=== PATIENT | female | born 1970 | race Caucasian/White ===

== ENCOUNTER 2016-12-25 15:56 | Emergency (ER) | payer MEDICAID ==
[~2016-12-25] VITALS: Ht 160 cm; Wt 63.0 kg
[2016-12-25] MEDS ORDERED: SODIUM CHLORIDE 0.9% 1,000 ML IV ONE (16:13)
[2016-12-25] MEDS ORDERED: ONDANSETRON HCL 4MG/2ML VIAL IV STA (16:13)
[2016-12-25] MEDS ORDERED: MORPHINE SULFATE 4 MG/ML CPJ (NOT FOR IM USE) IV ONE (16:15)
[2016-12-25 16:46] LABS: BASOPHILS % 0.8 % (0.0-2.0); EOSINOPHILS % 0.4 % (0.0-5.0); HEMATOCRIT. 34.5 % (36.0-48.0); LYMPHOCYTES % 36.2 % (20.0-50.0); MEAN CORPUSCULAR HEMOGLOBIN 23.4 pg (28.0-32.0); MEAN CORPUSCULAR VOLUME 73.1 fL (81.0-99.0); MEAN PLATELET VOLUME 8.7 fl (7.4-10.4); MONOCYTES % 6.2 % (2.0-8.0); NEUTROPHILS % 56.4 % (40.0-76.0); PLATELET 233 x1000/uL (130-400); RED BLOOD CELL COUNT 4.72 mill/uL (4.2-5.4)
[2016-12-25 16:48] LABS: CHLORIDE 103 mEq/L (98-107)
[2016-12-25 16:56] LABS: CARBON DIOXIDE 27 mEq/L (21-32)
[2016-12-25] MEDS ORDERED: AMLODIPINE 5MG TABLET PO ONE (18:15)
[2016-12-25 18:36] VITALS: BP 183/83
== END 2016-12-25 18:43 | disposition home or self-care (01) ==
LOC: ER 16:09
DX: R51 Headache (principal); I10 Essential (primary) hypertension; Z98.51 Tubal ligation status
CPT/HCPCS: 36415; 70450; 71010; 80053; 85025; 93005; 96361; 96374; 96375; 99285; J2270; J2405; J7030; Z7610

== ENCOUNTER 2017-05-13 04:52 | Emergency (ER) | payer SELFPAY ==
[~2017-05-13] VITALS: Ht 162.6 cm; Wt 50.0 kg
[2017-05-13] MEDS ORDERED: LORAZEPAM 1MG TABLET PO ONE (07:45)
[2017-05-13] MEDS ORDERED: ACETAMINOPHEN 500MG TABLET PO ONE (07:45)
[2017-05-13] MEDS ORDERED: BENAZEPRIL 20MG TABLET PO ONE (08:15)
[2017-05-13 08:37] VITALS: BP 165/84
== END 2017-05-13 09:00 | disposition home or self-care (01) ==
LOC: ER 04:52
DX: F41.9 Anxiety disorder, unspecified (principal); I10 Essential (primary) hypertension; Z98.51 Tubal ligation status
CPT/HCPCS: 71010; 99283

== ENCOUNTER 2017-08-08 10:08 | Emergency (ER) | payer SELFPAY ==
[~2017-08-08] VITALS: Ht 160 cm; Wt 64.4 kg
[2017-08-08] MEDS ORDERED: PROCHLORPERAZINE 10MG/2ML VIAL IV ONE (12:45)
[2017-08-08] MEDS ORDERED: DIPHENHYDRAMINE 50MG/ML VIAL IV ONE (12:45)
[2017-08-08 12:52] LABS: BASOPHILS % 0.6 % (0.0-2.0); EOSINOPHILS % 0.3 % (0.0-5.0); HEMATOCRIT. 36.9 % (36.0-48.0); HEMOGLOBIN. 12.2 g/dL (12.0-16.0); LYMPHOCYTES % 19.2 % (20.0-50.0); MEAN CORPUSCULAR HEMOGLOBIN 26.2 pg (28.0-32.0); MEAN CORPUSCULAR VOLUME 79.5 fL (81.0-99.0); MEAN PLATELET VOLUME 8.5 fl (7.4-10.4); MONOCYTES % 8.6 % (2.0-8.0); NEUTROPHILS % 71.3 % (40.0-76.0); PLATELET 207 x1000/uL (130-400); RED BLOOD CELL COUNT 4.65 mill/uL (4.2-5.4); RED CELL DISTRIBUTION WIDTH 15.1 % (11.6-14.6)
[2017-08-08 12:54] LABS: CHLORIDE 105 mEq/L (98-107)
[2017-08-08 13:20] LABS: HCG SCREEN NEGATIVE
[2017-08-08 15:50] VITALS: BP 187/93
== END 2017-08-08 15:59 | disposition home or self-care (01) ==
LOC: ER 12:00
DX: R51 Headache (principal); I10 Essential (primary) hypertension; Z98.51 Tubal ligation status
CPT/HCPCS: 36415; 70450; 80053; 84703; 85025; 93005; 99285; J0780; J1200; 96374

== ENCOUNTER 2017-10-02 17:15 | Emergency (ER) | payer SELFPAY ==
[~2017-10-02] VITALS: Ht 160 cm; Wt 64.0 kg
[2017-10-02 18:39] LABS: CLARITY URINE CLEAR (CLEAR); COLOR URINE YELLOW (YELLOW); KETONES URINE NEGATIVE (NEGATIVE); LEUKOCYTE ESTERASE URINE NEGATIVE (NEGATIVE); NITRITE URINE NEGATIVE (NEGATIVE); OCCULT BLOOD URINE 1+ (NEGATIVE); PH URINE 8.5 (4.5-8.0); PROTEIN URINE NEGATIVE (NEGATIVE); SPECIFIC GRAVITY URINE 1.018 (1.005-1.030)
[2017-10-02 18:57] LABS: BASOPHILS % 0.7 % (0.0-2.0); EOSINOPHILS % 0.4 % (0.0-5.0); HEMATOCRIT. 34.5 % (36.0-48.0); HEMOGLOBIN. 11.3 g/dL (12.0-16.0); LYMPHOCYTES % 38.7 % (20.0-50.0); MEAN CORPUSCULAR HEMOGLOBIN 26.3 pg (28.0-32.0); MEAN CORPUSCULAR VOLUME 80.6 fL (81.0-99.0); MEAN PLATELET VOLUME 8.6 fl (7.4-10.4); MONOCYTES % 9.1 % (2.0-8.0); NEUTROPHILS % 51.1 % (40.0-76.0); PLATELET 215 x1000/uL (130-400); RED BLOOD CELL COUNT 4.28 mill/uL (4.2-5.4); RED CELL DISTRIBUTION WIDTH 14.8 % (11.6-14.6)
[2017-10-02 18:58] LABS: CHLORIDE 103 mEq/L (98-107)
[2017-10-02 19:02] LABS: HCG SCREEN NEGATIVE
[2017-10-02] MEDS ORDERED: KETOROLAC 60MG/2ML VIAL IM ONE (20:30)
[2017-10-02 23:25] VITALS: BP 164/92
== END 2017-10-03 00:11 | disposition home or self-care (01) ==
LOC: ER 17:15
DX: D25.9 Leiomyoma of uterus, unspecified (principal); N83.201 Unspecified ovarian cyst, right side; D64.9 Anemia, unspecified; I10 Essential (primary) hypertension; Z98.51 Tubal ligation status
CPT/HCPCS: 36415; 76830; 76856; 80048; 81003; 84703; 85025; 96372; 99285; J1885; Z7610

== ENCOUNTER 2017-10-06 18:53 | Emergency (ER) | payer SELFPAY ==
[~2017-10-06] VITALS: Ht 167.6 cm; Wt 65.0 kg
[2017-10-06] MEDS ORDERED: ACETAMINOPHEN 325MG TABLET PO ONE (19:15)
[2017-10-06] MEDS ORDERED: AMLODIPINE 5MG TABLET PO ONE (19:30)
[2017-10-06 20:11] LABS: BASOPHILS % 0.8 % (0.0-2.0); EOSINOPHILS % 0.3 % (0.0-5.0); HEMATOCRIT. 33.3 % (36.0-48.0); HEMOGLOBIN. 11.1 g/dL (12.0-16.0); LYMPHOCYTES % 38.3 % (20.0-50.0); MEAN CORPUSCULAR HEMOGLOBIN 26.6 pg (28.0-32.0); MEAN CORPUSCULAR VOLUME 79.6 fL (81.0-99.0); MEAN PLATELET VOLUME 8.7 fl (7.4-10.4); MONOCYTES % 7.7 % (2.0-8.0); NEUTROPHILS % 52.9 % (40.0-76.0); PLATELET 211 x1000/uL (130-400); RED BLOOD CELL COUNT 4.18 mill/uL (4.2-5.4); RED CELL DISTRIBUTION WIDTH 14.5 % (11.6-14.6)
[2017-10-06 20:16] LABS: CHLORIDE 105 mEq/L (98-107)
[2017-10-06] MEDS ORDERED: ACETAMINOPHEN WITH CODEINE 300/30MG TABLET PO ONE (21:15)
[2017-10-06] MEDS ORDERED: KETOROLAC 60MG/2ML VIAL IM ONE (22:15)
[2017-10-06] MEDS ORDERED: CLONIDINE 0.1MG TABLET PO ONE (22:15)
[2017-10-06 23:47] VITALS: BP 146/88
== END 2017-10-06 23:51 | disposition home or self-care (01) ==
LOC: ER 18:53
DX: I16.0 Hypertensive urgency (principal); I10 Essential (primary) hypertension; D25.9 Leiomyoma of uterus, unspecified; Z98.51 Tubal ligation status
CPT/HCPCS: 36415; 71045; 80053; 81025; 85025; 85610; 93005; 96372; 99285; J1885; Z7610

== ENCOUNTER 2017-11-18 16:32 | Emergency (ER) | payer SELFPAY ==
[~2017-11-18] VITALS: Ht 160 cm; Wt 62.0 kg
[2017-11-18 16:43] VITALS: BP 152/94
== END 2017-11-18 21:00 | disposition left against medical advice (07) ==
LOC: ER 20:54
DX: R51 Headache (principal); R06.02 Shortness of breath; R42 Dizziness and giddiness; H53.8 Other visual disturbances; I10 Essential (primary) hypertension; Z98.51 Tubal ligation status
CPT/HCPCS: 99281

== ENCOUNTER 2017-11-26 08:53 | Inpatient (IN) | payer SELFPAY ==
[~2017-11-26] VITALS: Ht 160 cm; Wt 62.6 kg
[2017-11-26] MEDS ORDERED: AMLO2.5T45 MT (09:18)
[2017-11-26] MEDS ORDERED: METO25TA6 MT (09:18)
[2017-11-26] MEDS ORDERED: MORPHINE SULFATE 4 MG/ML CPJ (NOT FOR IM USE) IV STA (09:39)
[2017-11-26] MEDS ORDERED: ONDANSETRON HCL 4MG/2ML VIAL IV ONE (09:45)
[2017-11-26] MEDS ORDERED: ACETAMINOPHEN 325MG TABLET PO ONE (10:00)
[2017-11-26 10:05] LABS: BASOPHILS % 0.5 % (0.0-2.0); EOSINOPHILS % 0.4 % (0.0-5.0); HEMATOCRIT. 32.8 % (36.0-48.0); HEMOGLOBIN. 11.1 g/dL (12.0-16.0); LYMPHOCYTES % 25.8 % (20.0-50.0); MEAN CORPUSCULAR HEMOGLOBIN 27.3 pg (28.0-32.0); MEAN PLATELET VOLUME 7.3 fl (7.4-10.4); MONOCYTES % 5.7 % (2.0-8.0); NEUTROPHILS % 67.6 % (40.0-76.0); PLATELET 225 x1000/uL (130-400); RED BLOOD CELL COUNT 4.05 mill/uL (4.2-5.4); RED CELL DISTRIBUTION WIDTH 17.3 % (11.6-14.6)
[2017-11-26 10:12] LABS: PROTHROMBIN TIME 10.5 sec (9.4-11.6)
[2017-11-26 10:25] LABS: CHLORIDE 107 mEq/L (98-107)
[2017-11-26] MEDS ORDERED: ACETAMINOPHEN 325MG TABLET PO PRN (12:00)
[2017-11-26] MEDS ORDERED: ACETAMINOPHEN 650MG SUPP PR PRN (12:00)
[2017-11-26] MEDS ORDERED: MAGNESIUM/ALUMINUM HYDROXIDE/SIMETHICONE 30ML UDC PO PRN (12:00)
[2017-11-26] MEDS ORDERED: NA PHOS,M-B/NA PHOS,DI-BA ENEMA 118ML PR PRN (12:00)
[2017-11-26] MEDS ORDERED: DIPHENHYDRAMINE 50MG/ML VIAL IV PRN (12:00)
[2017-11-26] MEDS ORDERED: GUAIFENESIN 200MG/10ML SUGAR FREE UDC PO PRN (12:00)
[2017-11-26] MEDS ORDERED: ONDANSETRON HCL 4MG/2ML VIAL IV PRN (12:00)
[2017-11-26] MEDS ORDERED: HYDROCODONE/ACETAMINOPHEN 5/325MG TABLET PO PRN (12:00)
[2017-11-26] MEDS ORDERED: DOCUSATE SODIUM 100MG CAPSULE PO PRN (12:00)
[2017-11-26 13:09] LABS: CHLORIDE 105 mEq/L (98-107)
[2017-11-26 14:00] VITALS: BP 151/60
[2017-11-26] MEDS ORDERED: CLONIDINE 0.2MG TABLET PO PRN (15:15)
[2017-11-26] MEDS ORDERED: POTASSIUM CHLORIDE 20MEQ TABLET SR PO SCH (15:15)
[2017-11-26] MEDS ORDERED: POTASSIUM CHLORIDE 20MEQ/PACKET PO SCH (15:30)
[2017-11-26 16:00] VITALS: BP 165/86
[2017-11-26] MEDS: AMLODIPINE 2.5MG TABLET PO SCH (17:35)
[2017-11-26] MEDS: HYDROCODONE/ACETAMINOPHEN 10/325MG TABLET PO PRN ×2 (17:35→22:48)
[2017-11-26 19:07] LABS: CLARITY URINE CLOUDY (CLEAR); COLOR URINE YELLOW (YELLOW); KETONES URINE NEGATIVE (NEGATIVE); LEUKOCYTE ESTERASE URINE NEGATIVE (NEGATIVE); NITRITE URINE NEGATIVE (NEGATIVE); OCCULT BLOOD URINE NEGATIVE (NEGATIVE); PH URINE >=9.0 (4.5-8.0); PROTEIN URINE NEGATIVE (NEGATIVE); SPECIFIC GRAVITY URINE 1.016 (1.005-1.030); UROBILINOGEN URINE 0.2 E.U./dL (0.2-1.0)
[2017-11-26 19:11] LABS: UCG SCREEN NEGATIVE
[2017-11-26 19:22] LABS: CREATINE KINASE 70 IU/L (26-192)
[2017-11-26 19:23] LABS: CREATINE KINASE MB FRACTION 1.9 ng/mL (0.5-3.6)
[2017-11-26 19:28] LABS: *BARBITURATES SCREEN URINE NEGATIVE (NEGATIVE)
[2017-11-26 19:29] LABS: *BENZODIAZEPINES SCREEN URINE NEGATIVE (NEGATIVE); *COCAINE SCREEN URINE NEGATIVE (NEGATIVE); CANNABINOID URINE SCREEN NEGATIVE (NEGATIVE); METHADONE URINE SCREEN NEGATIVE (NEGATIVE); PHENCYCLIDINE URINE SCREEN NEGATIVE (NEGATIVE)
[2017-11-26 19:35] LABS: *AMPHETAMINES SCREEN URINE NEGATIVE (NEGATIVE); OPIATES URINE SCREEN PRESUMTIVE POSITIVE (NEGATIVE)
[2017-11-26 20:00] VITALS: BP 156/74
[2017-11-26] MEDS: IPRATROPIUM/ALBUTEROL 0.5-3(2.5)MG/3ML NEB INH SCH (22:20)
[2017-11-26] MEDS: CLONIDINE 0.2MG TABLET PO PRN (23:16)
[2017-11-26] MEDS: LORAZEPAM 0.5MG TABLET PO PRN (23:16)
[2017-11-26 23:51] LABS: CREATINE KINASE 73 IU/L (26-192)
[2017-11-26 23:52] LABS: CREATINE KINASE MB FRACTION 1.7 ng/mL (0.5-3.6)
[2017-11-27] VITALS: BP 159/92
[2017-11-27] MEDS: IPRATROPIUM/ALBUTEROL 0.5-3(2.5)MG/3ML NEB INH SCH ×3 (03:00→20:00)
[2017-11-27 04:00] VITALS: BP 173/85
[2017-11-27] MEDS: CLONIDINE 0.2MG TABLET PO PRN (06:11)
[2017-11-27 06:51] LABS: BASOPHILS % 0.4 % (0.0-2.0); EOSINOPHILS % 0.7 % (0.0-5.0); HEMATOCRIT. 35.4 % (36.0-48.0); HEMOGLOBIN. 11.7 g/dL (12.0-16.0); LYMPHOCYTES % 45.3 % (20.0-50.0); MEAN CORPUSCULAR HEMOGLOBIN 27.4 pg (28.0-32.0); MEAN CORPUSCULAR VOLUME 82.6 fL (81.0-99.0); MEAN PLATELET VOLUME 7.8 fl (7.4-10.4); NEUTROPHILS % 44.6 % (40.0-76.0); PLATELET 214 x1000/uL (130-400); RED BLOOD CELL COUNT 4.28 mill/uL (4.2-5.4); RED CELL DISTRIBUTION WIDTH 17.4 % (11.6-14.6)
[2017-11-27 07:09] LABS: CHLORIDE 105 mEq/L (98-107)
[2017-11-27 07:34] LABS: LDL CHOLESTEROL 92 mg/dL (5-100)
[2017-11-27 07:37] LABS: CREATINE KINASE 54 IU/L (26-192); HDL CHOLESTEROL 76 mg/dL (40-59)
[2017-11-27 07:38] LABS: CREATINE KINASE MB FRACTION 1.6 ng/mL (0.5-3.6)
[2017-11-27 07:39] LABS: T4 FREE 1.03 ng/dL (0.76-1.46)
[2017-11-27 08:00] VITALS: BP 117/75
[2017-11-27 12:00] VITALS: BP 122/75
[2017-11-27] MEDS: HYDROCODONE/ACETAMINOPHEN 10/325MG TABLET PO PRN (13:55)
[2017-11-27] MEDS: LOSARTAN POTASSIUM 25 MG TABLET PO SCH ×3 (14:30→21:07)
[2017-11-27 16:00] VITALS: BP 141/69
[2017-11-27 20:00] VITALS: BP 127/73
[2017-11-27] MEDS: AMLODIPINE 2.5MG TABLET PO SCH (21:00)
[2017-11-27] MEDS: ACETAMINOPHEN 650MG/20.3ML UDC GT PRN ×2 (21:03→21:05)
[2017-11-28] VITALS: BP 176/86
[2017-11-28] MEDS: LOSARTAN POTASSIUM 25 MG TABLET PO SCH (00:19)
[2017-11-28] MEDS: AMLODIPINE 2.5MG TABLET PO SCH (00:21)
[2017-11-28 04:00] VITALS: BP 161/85
[2017-11-28] MEDS: LORAZEPAM 0.5MG TABLET PO PRN (04:25)
[2017-11-28] MEDS: CLONIDINE 0.2MG TABLET PO PRN (04:25)
[2017-11-28 07:13] LABS: BASOPHILS % 0.5 % (0.0-2.0); HEMOGLOBIN. 12.1 g/dL (12.0-16.0); LYMPHOCYTES % 30.3 % (20.0-50.0); MEAN CORPUSCULAR HEMOGLOBIN 27.6 pg (28.0-32.0); MEAN CORPUSCULAR VOLUME 82.4 fL (81.0-99.0); MONOCYTES % 7.9 % (2.0-8.0); NEUTROPHILS % 60.3 % (40.0-76.0); PLATELET 222 x1000/uL (130-400); RED BLOOD CELL COUNT 4.36 mill/uL (4.2-5.4); RED CELL DISTRIBUTION WIDTH 17.1 % (11.6-14.6)
[2017-11-28 08:00] VITALS: BP 123/75
[2017-11-28 08:01] LABS: CHLORIDE 104 mEq/L (98-107)
[2017-11-28] MEDS: IPRATROPIUM/ALBUTEROL 0.5-3(2.5)MG/3ML NEB INH SCH ×3 (08:16→12:55)
[2017-11-28] MEDS: HYDROCODONE/ACETAMINOPHEN 10/325MG TABLET PO PRN (11:14)
[2017-11-28 12:00] VITALS: BP 114/76
[2017-11-28 16:00] VITALS: BP 122/71
[2017-11-28] MEDS ORDERED: AMLO2.5T45 PO (16:46)
[2017-11-28] MEDS ORDERED: LOSA25TA3 PO (16:46)
[2017-11-28 17:15] VITALS: BP 122/71
== END 2017-11-28 18:00 | disposition home or self-care (01) | DRG 203 ==
LOC: ER 08:53 → 7WST 11:06 → EDBEDREQ 11:08 → ENRESERV 13:34
PROVIDERS: ADMIT Internal Medicine; ATTEND Internal Medicine
DX: R07.89 Other chest pain (principal); E46 Unspecified protein-calorie malnutrition; E07.81 Sick-euthyroid syndrome; E11.9 Type 2 diabetes mellitus without complications; E87.6 Hypokalemia; F17.200 Nicotine dependence, unspecified, uncomplicated; F41.9 Anxiety disorder, unspecified; I10 Essential (primary) hypertension; Z68.24 Body mass index [BMI] 24.0-24.9, adult; Z79.899 Other long term (current) drug therapy
CPT/HCPCS: 36415; 71045; 78452; 80048; 80053; 80061; 80305; 81003; 81025; 82550; 82553; 82962; 83690; 83735; 83880; 84439; 84443; 84481; 84484; 85025; 85379; 85610; 93005; 93017; 93306; 93970; 94640; 96374; 96375; 99285; A9500; J1200; J2270; J2405; J7620

== ENCOUNTER 2017-12-01 16:55 | Emergency (ER) | payer SELFPAY ==
[~2017-12-01] VITALS: Ht 160 cm; Wt 62.7 kg
[~2017-12-01 16:55] MED LIST: AMLO2.5T45 PO; LOSA25TA3 PO
[2017-12-01 19:42] VITALS: BP 144/57
== END 2017-12-01 22:41 | disposition home or self-care (01) ==
LOC: ER 20:25
DX: B34.9 Viral infection, unspecified (principal); I10 Essential (primary) hypertension
CPT/HCPCS: 82962; 93005; 99283; Z7610

== ENCOUNTER 2018-09-17 16:58 | Emergency (ER) | payer SELFPAY ==
[~2018-09-17] VITALS: Ht 160 cm; Wt 65.0 kg
[2018-09-17] MEDS ORDERED: METO-539 PO (17:05)
[2018-09-17] MEDS ORDERED: ONDANSETRON HCL 4MG/2ML INJ IV STA (18:30)
[2018-09-17] MEDS ORDERED: SODIUM CHLORIDE 0.9% 1,000 ML IV ONE (18:30)
[2018-09-17 19:14] LABS: CHLORIDE 104 mEq/L (98-107)
[2018-09-17 19:16] LABS: BASOPHILS % 0.8 % (0.0-2.0); EOSINOPHILS % 0.9 % (0.0-5.0); HEMATOCRIT. 39.3 % (36.0-48.0); HEMOGLOBIN. 13.2 g/dL (12.0-16.0); LYMPHOCYTES % 39.5 % (20.0-50.0); MEAN CORPUSCULAR VOLUME 86.3 fL (81.0-99.0); MEAN PLATELET VOLUME 9.1 fl (7.4-10.4); MONOCYTES % 7.9 % (2.0-8.0); NEUTROPHILS % 50.9 % (40.0-76.0); PLATELET 203 x1000/uL (130-400); RED BLOOD CELL COUNT 4.56 mill/uL (4.2-5.4); RED CELL DISTRIBUTION WIDTH 13.5 % (11.6-14.6)
[2018-09-17] MEDS ORDERED: ASPIRIN 81MG TABLET PO ONE (19:45)
[2018-09-17 22:40] VITALS: BP 162/84
== END 2018-09-17 22:45 | disposition home or self-care (01) ==
LOC: ER 16:58
DX: R07.89 Other chest pain (principal); I10 Essential (primary) hypertension; Z90.710 Acquired absence of both cervix and uterus
CPT/HCPCS: 36415; 71045; 80053; 81025; 83880; 84484; 85025; 93005; 96374; 99284; J2405; J7030

== ENCOUNTER 2018-11-28 15:37 | Emergency (ER) | payer SELFPAY ==
[~2018-11-28] VITALS: Ht 160 cm; Wt 68.0 kg
[~2018-11-28 15:37] MED LIST changes: +METO-539 PO
[2018-11-28 15:48] VITALS: BP 220/102
== END 2018-11-28 18:17 | disposition left against medical advice (07) ==
LOC: ER 15:37
DX: Z53.21 Procedure and treatment not carried out due to patient leaving prior to being seen by health care provider (principal)

== ENCOUNTER 2020-08-11 16:02 | Emergency (ER) | payer MEDICAID ==
[~2020-08-11] VITALS: Ht 160 cm; Wt 77.0 kg
[2020-08-11 16:43] LABS: BASOPHILS % 0.6 % (0.0-2.0); EOSINOPHILS % 0.4 % (0.0-5.0); HEMATOCRIT. 41.1 % (36.0-48.0); HEMOGLOBIN. 14.1 g/dL (12.0-16.0); LYMPHOCYTES % 31.6 % (20.0-50.0); MEAN CORPUSCULAR HEMOGLOBIN 31.3 pg (28.0-32.0); MEAN CORPUSCULAR VOLUME 90.9 fL (81.0-99.0); MEAN PLATELET VOLUME 8.1 fl (7.4-10.4); MONOCYTES % 7.3 % (2.0-8.0); NEUTROPHILS % 60.1 % (40.0-76.0); PLATELET 229 x1000/uL (130-400); RED BLOOD CELL COUNT 4.53 mill/uL (4.2-5.4); RED CELL DISTRIBUTION WIDTH 12.7 % (11.6-14.6)
[2020-08-11 16:49] LABS: CHLORIDE 107 mEq/L (98-107)
[2020-08-11] MEDS ORDERED: ACETAMINOPHEN 325MG TABLET PO ONE (18:30)
[2020-08-11] MEDS ORDERED: IBUPROFEN 400MG TABLET PO ONE (18:30)
[2020-08-11 18:32] VITALS: BP 169/85
== END 2020-08-11 19:47 | disposition home or self-care (01) ==
LOC: ER 16:02
DX: R42 Dizziness and giddiness (principal); R51.9 Headache, unspecified; I10 Essential (primary) hypertension; Z90.710 Acquired absence of both cervix and uterus
CPT/HCPCS: 36415; 71045; 80053; 83880; 84484; 85025; 93005; 99285

== ENCOUNTER 2023-05-24 20:54 | Emergency (ER) | payer SELFPAY ==
[~2023-05-24] VITALS: Ht 162.6 cm; Wt 72.4 kg
[~2023-05-24 20:54] MED LIST changes: +LOSA-412 PO; -LOSA25TA3 PO
[2023-05-24 22:22] VITALS: BP 148/93; PULSE 60; RESP 18; TEMP 98; O2SAT 99
[2023-05-25] MEDS ORDERED: LORAZEPAM 0.5MG TABLET PO ONE (00:45)
[2023-05-25] MEDS ORDERED: HYDR-3992 MT (01:03)
== END 2023-05-25 02:18 | disposition home or self-care (01) ==
LOC: ER 20:54
DX: K08.89 Other specified disorders of teeth and supporting structures (principal); F41.9 Anxiety disorder, unspecified; I10 Essential (primary) hypertension; Z98.890 Other specified postprocedural states
CPT/HCPCS: 99283

== ENCOUNTER 2023-08-09 14:05 | Emergency (ER) | payer SELFPAY ==
[~2023-08-09] VITALS: Ht 160 cm; Wt 73.0 kg
[~2023-08-09 14:05] MED LIST changes: +HYDR-3992 MT
[2023-08-09 14:16] VITALS: O2SAT 98
[2023-08-09] MEDS ORDERED: AMOX1TAB16 MT (16:13)
[2023-08-09] MEDS ORDERED: BACI3.5O24 RIGHTEYE (16:15)
[2023-08-09 17:10] VITALS: BP 164/94; PULSE 62; RESP 16; TEMP 98.2
== END 2023-08-09 17:15 | disposition home or self-care (01) ==
LOC: ER 14:39
DX: H00.011 Hordeolum externum right upper eyelid (principal); F41.9 Anxiety disorder, unspecified; I10 Essential (primary) hypertension; Z79.899 Other long term (current) drug therapy
CPT/HCPCS: 99281; 99283

== ENCOUNTER 2023-12-12 14:03 | Emergency (ER) | payer SELFPAY ==
[~2023-12-12] VITALS: Ht 160 cm; Wt 74.0 kg
[~2023-12-12 14:03] MED LIST changes: +AMOX1TAB16 MT; +BACI3.5O24 RIGHTEYE
[2023-12-12 14:08] VITALS: O2SAT 99
[2023-12-12] MEDS: KETOROLAC 30MG/ML VIAL IM ONE (15:28)
[2023-12-12 15:48] LABS: CLARITY URINE CLEAR (CLEAR); COLOR URINE YELLOW (YELLOW); GLUCOSE URINE NEGATIVE (NEGATIVE); KETONES URINE NEGATIVE (NEGATIVE); LEUKOCYTE ESTERASE URINE NEGATIVE (NEGATIVE); NITRITE URINE NEGATIVE (NEGATIVE); OCCULT BLOOD URINE NEGATIVE (NEGATIVE); PH URINE 7.5 (4.5-8.0); PROTEIN URINE NEGATIVE (NEGATIVE); SPECIFIC GRAVITY URINE 1.008 (1.005-1.030)
[2023-12-12] MEDS ORDERED: METH-653 MT (15:53)
[2023-12-12] MEDS ORDERED: LIDO700A15 TP (15:53)
[2023-12-12 16:01] VITALS: BP 148/88; PULSE 68; RESP 18; TEMP 97.7
== END 2023-12-12 16:01 | disposition home or self-care (01) ==
LOC: ER 14:03
DX: M54.50 Low back pain, unspecified (principal); R25.2 Cramp and spasm; I10 Essential (primary) hypertension; Z79.899 Other long term (current) drug therapy; Z98.51 Tubal ligation status
CPT/HCPCS: 99283; 81003; 96372; J1885

== ENCOUNTER 2025-02-06 11:13 | Emergency (ER) | payer MEDICAID ==
[~2025-02-06] VITALS: Ht 160 cm; Wt 64.0 kg
[~2025-02-06 11:13] MED LIST changes: +LIDO-53 TP; +METH-653 MT
[2025-02-06 11:16] VITALS: O2SAT 98
[2025-02-06] MEDS ORDERED: LIDO-53 TP (13:22)
[2025-02-06] MEDS ORDERED: ACET-2708 MT (13:22)
[2025-02-06] MEDS: ACETAMINOPHEN 500MG TABLET PO ONE (13:40)
[2025-02-06] MEDS: LIDOCAINE 5% PATCH TOP SCH (13:53)
[2025-02-06 14:20] VITALS: BP 149/66; PULSE 85; RESP 18; TEMP 36.7; O2SAT 98
== END 2025-02-06 14:21 | disposition home or self-care (01) ==
LOC: ER 11:13
DX: M54.9 Dorsalgia, unspecified (principal); F41.9 Anxiety disorder, unspecified; I10 Essential (primary) hypertension; Z98.51 Tubal ligation status
CPT/HCPCS: 99283